=== PATIENT | female | born 1980 | race Two or more races ===

== ENCOUNTER 2020-08-20 09:17 | Outpatient (CLI) | payer OTHER | END 2020-08-20 09:24 | disposition home or self-care (01) | LOC: SONOGRAMA 09:17 | PROVIDERS: ATTEND General Practice | DX: D25.2 Subserosal leiomyoma of uterus (principal); R10.2 Pelvic and perineal pain ==

== ENCOUNTER 2020-10-23 13:18 | Outpatient (CLI) | payer OTHER | END 2020-10-23 13:24 | disposition home or self-care (01) | LOC: LAB 13:18 | PROVIDERS: ATTEND Radiology Diagnostic Radiology | DX: N20.0 Calculus of kidney (principal) ==

== ENCOUNTER 2021-01-11 11:06 | Outpatient (CLI) | payer OTHER | END 2021-01-11 11:11 | disposition home or self-care (01) | LOC: MAMO-SONO 11:06 | DX: Z12.31 Encounter for screening mammogram for malignant neoplasm of breast (principal) ==